=== PATIENT | female | born 1955 | race Caucasian/White ===

== ENCOUNTER 2017-02-03 08:57 | Outpatient (CLI) | payer SELFPAY ==
--- NOTE | 2017-02-03 12:26 | HP ---
DATE OF SERVICE: 02/03/2017 HISTORY OF PRESENT ILLNESS: Ms. Ada Ramirez is a very pleasant 61-year-old who presents to [facility] for evaluation of a midline abdominal wound subsequent to washout of an infected abd ominal wound on 01/28/[address] Jose Alfredo Gomez. Previously, the patient had undergone on 01/05/20 17, ventral incisional hernia repair with mesh placement on 01/04/[address] Gustavo Almendarez. At [facility] time of washout of the patient's infected abdominal wound on 01/28/2017, negative pressure therap y was initiated. Upon discharge from [facility], the patient was referred to the Wound Center for assistance with dressing changes of the wound VAC. The patient was discharged to home on Augmentin, which she is taking as prescribed. PAST MEDICAL HISTORY: 1. Hypothyroidism. 2. Left subclavian artery thrombosis. 3. History of rheumatoid arthritis. 4. Peptic ulcer disease. 5. Degenerative joint disease. 6. Coronary artery disease. 7. Chronic back pain. PAST SURGICAL HISTORY: 1. Multiple surgical procedures of right and left knees. 2. Cholecystectomy. 3. Back surgery x4. 4. Appendectomy. 5. Hysterectomy. 6. Tonsillectomy. 7. Incisional hernia surgery with lysis of adhesions. 8. Removal of bone growth stimulator on 08/25/2015. 9. Ventral incisional hernia repair with mesh placement, 01/04/2017. 10. Washout of infected abdominal wound, 01/28/2017. MEDICATIONS: 1. Levothyroxine. 2. [place] Thyroid. 3. Augmentin. 4. [place]. 5. Zofran. 6. Probiotics. 7. Vitamin C. 8. Vitamin B. ALLERGIES: Include LEVAQUIN, SULFA, DEMEROL, COMPAZINE, and STEROIDS. SOCIAL HISTORY: Negative for tobacco use. The patient admits to only rare consumption of alcohol. FAMILY HISTORY: Negative for diabetes mellitus. Family history is significant for coronary artery disease. The patient states that her maternal grandfather and brother were both diagnosed with mateo nary artery disease. PHYSICAL EXAMINATION: VITAL SIGNS: Temperature 98.0, pulse 77, respirations 18, blood pressure 123/76. GENERAL: A 61-year-old female lying on table in examination room in no acute distress. HEENT: Normocephalic, atraumatic. NECK: No nuchal rigidity. CHEST: Clear to auscultation. CARDIOVASCULAR: Regular rate and rhythm. ABDOMEN: Soft. A midline abdominal wound is present which measures approximately 8.0 x 4.0 cm. Gr anulation tissue is present within the wound margins. No purulent drainage is associated with the w ound. No erythema of the skin surrounding the wound is present. No maceration of the skin of the p eriwound is noted. EXTREMITIES: No clubbing or cyanosis. NEUROLOGIC: Grossly nonfocal. ASSESSMENT AND PLAN: 1. Midline abdominal wound as described above, subsequent to washout of an infected abdominal wound on 01/28/[address] Jose Alfredo Gomez. Negative pressure therapy was initiated intraoperatively and upon discharge from [facility], the patient was referred to the Wound Center for assistance with dressing changes of the wound VAC. Negative pressure therapy will be continued with dressing changes of the wound VAC 2-3 times per week here in the Wound Center. The patient kandis l be seen by Dr. Almendarez in 1 week. I will see Ms. Ramirez again in two weeks. The patient has been reminded to continue Augmentin as previously prescribed. 2. Hypothyroidism. 3. Left subclavian artery thrombosis. 4. History of rheumatoid arthritis. 5. Peptic ulcer disease. 6. Degenerative joint disease. 7. Coronary artery disease. 8. Chronic back pain.
== END 2017-02-03 08:58 | disposition home or self-care (01) ==
LOC: WCC 08:57
PROVIDERS: ATTEND Family Medicine
DX: S31.109D Unspecified open wound of abdominal wall, unspecified quadrant without penetration into peritoneal cavity, subsequent encounter (principal); E03.9 Hypothyroidism, unspecified; I82.B12 Acute embolism and thrombosis of left subclavian vein; M06.9 Rheumatoid arthritis, unspecified; K27.9 Peptic ulcer, site unspecified, unspecified as acute or chronic, without hemorrhage or perforation; M19.90 Unspecified osteoarthritis, unspecified site; I25.10 Atherosclerotic heart disease of native coronary artery without angina pectoris; G89.29 Other chronic pain; M54.9 Dorsalgia, unspecified
CPT/HCPCS: 97606; 99204; G0463

== ENCOUNTER 2017-02-07 14:05 | Outpatient (CLI) | payer SELFPAY ==
[2017-02-07] MEDS ORDERED: Sodium Chloride 0.9% 15 ML NEB ONE (18:46)
== END 2017-02-07 14:06 | disposition home or self-care (01) ==
LOC: WCC 14:05
PROVIDERS: ATTEND Family Medicine
DX: T81.89XD Other complications of procedures, not elsewhere classified, subsequent encounter (principal)
CPT/HCPCS: 97606; A4218

== ENCOUNTER 2017-02-10 13:56 | Outpatient (CLI) | payer SELFPAY ==
[~2017-02-10 13:56] MED LIST: Sodium Chloride 0.9% 15 ML NEB ONE
== END 2017-02-10 13:57 | disposition home or self-care (01) ==
LOC: WCC 13:56
PROVIDERS: ATTEND Family Medicine
DX: T81.89XD Other complications of procedures, not elsewhere classified, subsequent encounter (principal)
CPT/HCPCS: 97605; A4218

== ENCOUNTER 2017-02-17 13:02 | Outpatient (CLI) | payer SELFPAY ==
--- NOTE | 2017-02-17 15:01 | PRG ---
DATE OF SERVICE: 02/17/2017 SUBJECTIVE: Ms. Ada Ramirez is a very pleasant 61-year-old who presents to the Wound Center for evaluation of a midline abdominal wound subsequent to wash out of an infected abdominal wound on , by Dr. Jose Alfredo Gomez. Previously, the patient had undergone on 01/04/2017, ventral incisi onal hernia repair with mesh placement by Dr. Gustavo Almendarez. As the time of washout of the patien t's infected abdominal wound on 01/28/2017, negative pressure therapy was initiated. Upon discharge from [facility], the patient was referred to the Wound Center for assistance with dressing changes of the wound VAC. The patient was discharged to home on Augmentin. OBJECTIVE: VITAL SIGNS: Temperature 97.9, pulse 83, respirations 18 and blood pressure 159/65. ABDOMEN: Soft. A midline abdominal wound is present, which measures approximately 4.5 x 3.0 cm. T he dimensions of the wound at the time of the patient's visit on 02/03/2017 were approximately 8.0 x 4.0 cm. The depth of the wound is approximately 4.0 cm. Granulation tissue is present within the wound margins. No purulent drainage is associated with the wound. No erythema of the skin surround ing the wound is present. No maceration of the skin of the periwound is noted. ASSESSMENT AND PLAN: 1. Midline abdominal wound as described above, subsequent to wash out of an infected abdominal woun d on 01/28/2017, by Dr. Jose Alfredo Gomez. Negative pressure therapy was initiated intraoperatively an d upon discharge from [facility], the patient was referred to [facility] for assistance with dressing changes of the wound VAC. Negative pressure therapy will be continue d with dressing changes of the wound VAC 2 times per week here in the Wound Center. The patient kandis l be seen by Dr. Almendarez in 1 week. I will see Ms. Ramirez again in 3 weeks. 2. Hypothyroidism. 3. Left subclavian artery thrombosis. 4. History of rheumatoid arthritis. 5. Peptic ulcer disease. 6. Degenerative joint disease. 7. Coronary artery disease. 8. Chronic back pain.
== END 2017-02-17 13:03 | disposition home or self-care (01) ==
LOC: WCC 13:02
PROVIDERS: ATTEND Family Medicine
DX: T81.89XD Other complications of procedures, not elsewhere classified, subsequent encounter (principal); I25.10 Atherosclerotic heart disease of native coronary artery without angina pectoris; E03.9 Hypothyroidism, unspecified; M19.90 Unspecified osteoarthritis, unspecified site; K27.9 Peptic ulcer, site unspecified, unspecified as acute or chronic, without hemorrhage or perforation; M54.9 Dorsalgia, unspecified; I74.8 Embolism and thrombosis of other arteries
CPT/HCPCS: 97606

== ENCOUNTER 2017-03-03 10:55 | Outpatient (CLI) | payer SELFPAY ==
[2017-03-03] MEDS ORDERED: Sodium Chloride 0.9% 15 ML NEB ONE (16:54)
== END 2017-03-03 10:56 | disposition home or self-care (01) ==
LOC: WCC 10:55
PROVIDERS: ATTEND Family Medicine
DX: T81.89XD Other complications of procedures, not elsewhere classified, subsequent encounter (principal); S31.609D Unspecified open wound of abdominal wall, unspecified quadrant with penetration into peritoneal cavity, subsequent encounter
CPT/HCPCS: 97605; A4218

== ENCOUNTER 2017-03-07 09:59 | Outpatient (CLI) | payer SELFPAY ==
[2017-03-07] MEDS ORDERED: Sodium Chloride 0.9% 15 ML NEB ONE (17:05)
== END 2017-03-07 10:00 | disposition home or self-care (01) ==
LOC: WCC 09:59
PROVIDERS: ATTEND Family Medicine
DX: T81.89XD Other complications of procedures, not elsewhere classified, subsequent encounter (principal)
CPT/HCPCS: 97606; A4218

== ENCOUNTER 2017-03-08 10:06 | Outpatient (CLI) | payer SELFPAY | END 2017-03-08 10:07 | disposition home or self-care (01) | LOC: WCC 10:06 | PROVIDERS: ATTEND Family Medicine | DX: T81.89XD Other complications of procedures, not elsewhere classified, subsequent encounter (principal); Z88.2 Allergy status to sulfonamides; Z88.8 Allergy status to other drugs, medicaments and biological substances ==

== ENCOUNTER 2017-03-09 13:53 | Outpatient (CLI) | payer SELFPAY ==
[2017-03-09] MEDS ORDERED: Sodium Chloride 0.9% 15 ML NEB ONE (17:28)
== END 2017-03-09 13:54 | disposition home or self-care (01) ==
LOC: WCC 13:53
PROVIDERS: ATTEND Family Medicine
DX: T81.89XD Other complications of procedures, not elsewhere classified, subsequent encounter (principal)
CPT/HCPCS: 97605; A4218

== ENCOUNTER 2017-03-14 13:29 | Outpatient (CLI) | payer SELFPAY ==
--- NOTE | 2017-03-14 14:45 | PRG ---
DATE OF SERVICE: 03/14/2017 HISTORY: Ms. Ada Ramirez is a very pleasant 61-year-old who presents to the Wound Center for evaluation of a midline abdominal wound subsequent to washout of an infected abdominal wound on 01/28/[address] Jose Alfredo Gomez. Previously , the patient had undergone on 01/04/2017 ventral incisional hernia repair with mesh placement by Dr. Gustavo Almendarez. At the time of washout of the patient's infected abdominal wound on 01/28/2017, negative pressure therapy was initiated. Upon discharge from [facility], the patient was referred to the Wound Center for assistance with dressing changes of the wound VAC. The patient was discharged to home on Augmentin. PHYSICAL EXAMINATION: VITAL SIGNS: Temperature 97.8, pulse 76, respirations 18, blood pressure 140/ 89. ABDOMEN: Soft. A midline abdominal wound is present, which measures approximately 5.2 x 2.7 cm. The dimensions of the wound at the time of the patient's visit on 02/17/2017 were approximately 4.5 x 3.0 cm. The depth of the wound is approximately 4.5 cm. The depth of the wound at the time of the patient's visit on 02/17/2017 was approximately 4 cm. Granulation tissue is present within the wound margins. No purulent drainage is associated with the wound. No erythema of the skin surrounding the wound is present. No maceration of the skin of the periwound is noted. ASSESSMENT AND PLAN: 1. Midline abdominal wound, as described above, subsequent to washout of an infected abdominal wound on 01/28/[address] Jose Alfredo Gomez. Negative pressure therapy was initiated intraoperatively, and upon discharge from [facility], the patient was referred to the Wound Center for assistance with dressing changes of the wound VAC. Negative pressure therapy will be continued with dressing changes of the wound VAC 2 times per week here in the Wound Center. The patient will be seen by Dr. Almendarez in 1 week. I will see Ms. Ramirez again in four weeks if her wound is still present at this time. The wound VAC will be placed to settings of 150 mmHg, continuous today. Promogran at the time of wound VAC dressing changes will be discontinued. 2. Hypothyroidism. 3. Left subclavian artery thrombosis. 4. History of rheumatoid arthritis. 5. Peptic ulcer disease. 6. Degenerative joint disease. 7. Coronary artery disease. 8. Chronic back pain. MTDD
[2017-03-14] MEDS ORDERED: Sodium Chloride 0.9% 15 ML NEB ONE (17:04)
== END 2017-03-14 13:30 | disposition home or self-care (01) ==
LOC: WCC 13:29
PROVIDERS: ATTEND Family Medicine
DX: T81.89XD Other complications of procedures, not elsewhere classified, subsequent encounter (principal); E03.9 Hypothyroidism, unspecified; I74.2 Embolism and thrombosis of arteries of the upper extremities; I25.10 Atherosclerotic heart disease of native coronary artery without angina pectoris; M19.90 Unspecified osteoarthritis, unspecified site; K27.9 Peptic ulcer, site unspecified, unspecified as acute or chronic, without hemorrhage or perforation; M06.9 Rheumatoid arthritis, unspecified; M54.9 Dorsalgia, unspecified; G89.29 Other chronic pain
CPT/HCPCS: 97605; A4218

== ENCOUNTER 2017-03-17 14:13 | Outpatient (CLI) | payer SELFPAY ==
[2017-03-17] MEDS ORDERED: Sodium Chloride 0.9% 15 ML NEB ONE (17:54)
== END 2017-03-17 14:14 | disposition home or self-care (01) ==
LOC: WCC 14:13
PROVIDERS: ATTEND Family Medicine
DX: T81.89XD Other complications of procedures, not elsewhere classified, subsequent encounter (principal)
CPT/HCPCS: 97605; A4218

== ENCOUNTER 2017-03-21 13:31 | Outpatient (CLI) | payer SELFPAY | END 2017-03-21 13:32 | disposition home or self-care (01) | LOC: WCC 13:31 | PROVIDERS: ATTEND Family Medicine | DX: T81.89XD Other complications of procedures, not elsewhere classified, subsequent encounter (principal) | CPT/HCPCS: 97605 ==